=== PATIENT | female | born 1990 | race American Indian/Alaskan Native ===

== ENCOUNTER 2016-10-31 12:31 | Emergency (ER) | payer SELFPAY ==
[2016-10-31] MEDS ORDERED: LIDOCAINE VISCOUS 2% MM STA (15:23)
[2016-10-31] MEDS ORDERED: CLEOCIN IM ONE (15:23)
[2016-10-31] MEDS ORDERED: TORADOL IM ONE (15:23)
--- NOTE | 2016-10-31 15:41 | Emergency Department Report ---
ED ENT HPI - General Chief complaint: Dental/Oral Stated complaint: TOOTHACHE Time Seen by Provider: 10/31/16 15:15 Source: patient Mode of arrival: Ambulatory Limitations: No Limitations - History of Present Illness Initial comments: PT states she needs all of her teeth removed. PT states she had lots of dental work as a child. PT States she has dental decay and broken teeth. PT states she had some L ear pain the other day and then developed a toothache on the left side. PT States she woke up this morning and noticed swelling to her left face. PT states last week, she tried to follow up with the Dentist but she was told that they could not see her until after the holiday. PT states she drove herself to the ED. PT states she took an Aleve this morning and did not get relief. MD complaint: tooth pain -: Gradual, days(s) Location: other (left upper teeth ) Severity scale (0 -10): 10 Quality: constant Consistency: constant Improves with: none Worsens with: other (palpation ) Associated Symptoms: gum swelling. denies: fever, cough, pain with swallowing, sore throat - Related Data Previous Rx's Medication Instructions Recorded Last Taken Type Acetaminophen/Codeine [Tylenol #3] 1 tab PO Q6H PRN #12 tab 10/31/16 Unknown Rx Clindamycin [Clindamycin CAP] 300 mg PO Q8H #30 cap 10/31/16 Unknown Rx Ibuprofen [Motrin] 600 mg PO Q8H PRN #20 tablet 10/31/16 Unknown Rx Allergies Allergy/AdvReac Type Severity Reaction Status Date / Time No Known Allergies Allergy Unverified 12/14/14 18:29 ED Dental HPI - General Chief complaint: Dental/Oral Stated complaint: TOOTHACHE Time Seen by Provider: 10/31/16 15:15 Source: patient Mode of arrival: Ambulatory Limitations: No Limitations - Related Data Previous Rx's Medication Instructions Recorded Last Taken Type Acetaminophen/Codeine [Tylenol #3] 1 tab PO Q6H PRN #12 tab 10/31/16 Unknown Rx Clindamycin [Clindamycin CAP] 300 mg PO Q8H #30 cap 10/31/16 Unknown Rx Ibuprofen [Motrin] 600 mg PO Q8H PRN #20 tablet 10/31/16 Unknown Rx Allergies Allergy/AdvReac Type Severity Reaction Status Date / Time No Known Allergies Allergy Unverified 12/14/14 18:29 ED Review of Systems ROS: Stated complaint: TOOTHACHE Other details as noted in HPI Comment: All other systems reviewed and negative Constitutional: denies: chills, fever Gastrointestinal: denies: abdominal pain, nausea, vomiting Genitourinary: denies: abnormal menses (on cycle now ) ED Past Medical Hx - Past Medical History Previous Medical History?: No Hx Hypertension: No Hx Heart Attack/AMI: No Hx Congestive Heart Failure: No Hx Diabetes: No Hx Deep Vein Thrombosis: No Hx Renal Disease: No Hx Sickle Cell Disease: No Hx Seizures: No Hx Asthma: No Hx COPD: No - Surgical History Past Surgical History?: No - Social History Smoking Status: Current Every Day Smoker Substance Use Type: None - Medications Home Medications: Home Medications Medication Instructions Recorded Confirmed Last Taken Type Acetaminophen/Codeine [Tylenol #3] 1 tab PO Q6H PRN #12 tab 10/31/16 Unknown Rx Clindamycin [Clindamycin CAP] 300 mg PO Q8H #30 cap 10/31/16 Unknown Rx Ibuprofen [Motrin] 600 mg PO Q8H PRN #20 tablet 10/31/16 Unknown Rx ED Physical Exam - General Limitations: No Limitations General appearance: alert, in no apparent distress - Head Head exam: Present: atraumatic, normocephalic, other (mild facial swelling to the L maxillary region ) - Eye Eye exam: Present: normal appearance, PERRL, EOMI. Absent: conjunctival injection - ENT ENT exam: Present: mucous membranes moist, TM's normal bilaterally, normal external ear exam - Expanded ENT Exam Expanded Mouth exam: Absent: drooling, trismus Teeth exam: Present: dental caries, dental tenderness #, gingival enlargement, other (multipe teeth with metal covering ) 1 - Other (abscess) 2 - Dental Tenderness Throat exam: Positive: normal inspection. Negative: tonsillar erythema, tonsillomegaly, tonsillar exudate - Neck Neck exam: Present: normal inspection, full ROM. Absent: lymphadenopathy - Respiratory Respiratory exam: Present: normal lung sounds bilaterally. Absent: respiratory distress - Cardiovascular Cardiovascular Exam: Present: regular rate, normal rhythm - Extremities Exam Extremities exam: Present: normal inspection, full ROM - Back Exam Back exam: Present: normal inspection, full ROM - Neurological Exam Neurological exam: Present: alert, oriented X3 - Psychiatric Psychiatric exam: Present: normal affect, normal mood - Skin Skin exam: Present: warm, dry, intact ED Course Vital Signs 10/31/16 10/31/16 13:07 15:57 Temperature 98.8 F Pulse Rate 62 Respiratory 16 20 Rate Blood Pressure 145/94 O2 Sat by Pulse 100 Oximetry - I & D Left Upper Type of Procedure: Simple Site: dental, L upper gum Blade Size: 18 gauge needle Progress: pt reported pain relief with viscous lidocaine. 18 gauge needle used to aspirate 0.5 ml of purulent drainage. pt tolerated the procedure well. no immediate complications - Pulse Oximetry Interpretation Digit-Finger Initial Pulse Oximetry Readin Actions Taken: none ED Medical Decision Making - Differential Diagnosis dental decay, abscess Critical Care Time: No Critical care attestation.: If time is entered above; I have spent that time in minutes in the direct care of this critically ill patient, excluding procedure time. ED Disposition Clinical Impression: Dental abscess Disposition: TO HOME OR SELFCARE Is pt being admited?: No Does the pt Need Aspirin: No Condition: Stable Instructions: Dental Abscess (ED) Additional Instructions: No driving or ETOH after taking Tylenol #3 for pain No smoking Swish and spit with warm salt water at least 4 times a day good oral hygiene Follow up with dentist in the next 3-5 days Follow up with PCP in 5-7 days for bp recheck Return to ED if worsening or concerns Prescriptions: Acetaminophen/Codeine [Tylenol #3] 1 tab PO Q6H PRN #12 tab PRN Reason: Pain , Severe (7-10) Clindamycin [Clindamycin CAP] 300 mg PO Q8H #30 cap Ibuprofen [Motrin] 600 mg PO Q8H PRN #20 tablet PRN Reason: Pain Referrals: PRIMARY CAREMD [Primary Care Provider] - 3-5 Days [place] ABDUL MD [Staff Physician] - 3-5 Days [facility] [Outside] - 3-5 Days [facility] [Outside] - 3-5 Days Time of Disposition: 16:43
[2016-10-31 16:54] VITALS: BP 144/93
== END 2016-10-31 16:54 | disposition home or self-care (01) ==
LOC: ED 12:31
DX: K04.7 Periapical abscess without sinus (principal); F17.200 Nicotine dependence, unspecified, uncomplicated
CPT/HCPCS: 10160; 96372; 99282; J1885